=== PATIENT | female | born 1950 | race American Indian/Alaskan Native ===

== ENCOUNTER 2017-02-10 20:03 | Emergency (ER) | payer MEDICARE ==
[2017-02-10] MEDS ORDERED: MORPHINE IM ONE (21:07)
[2017-02-10] MEDS ORDERED: ZOFRAN ORAL LIQ PO ONE (21:07)
--- NOTE | 2017-02-10 21:12 | Emergency Department Report ---
ED General Adult HPI - General Chief complaint: Extremity Problem,Nontraumatic Stated complaint: KNEE/HIP PAIN Time Seen by Provider: 02/10/17 21:07 Source: patient, family Mode of arrival: Ambulatory Limitations: Physical Limitation - History of Present Illness Initial comments: Patient is a 66 yo F with hx of chornic right knee pain s/p knee replacement presenting today because of right knee pain. Patient states that this has been going on for months to years. She is supposed to see a pain management doctor but states something about her lip records being lost and not being able to get a refill of her morphine prescription. States any other medication over-the- counter does not work for her pain. Also states in our medical records that she is allergic to Tylenol and ibuprofen and hydrocodone and oxycodone. She denies any fevers or chills. She does have some nausea and vomiting which she states is secondary to the pain of her right knee. - Related Data Previous Rx's Medication Instructions Recorded Last Taken Type Butalb/Acetamin/Caff 50-325-40 2 tab PO Q8HR PRN #20 tablet 07/18/16 Unknown Rx [Fioricet] Promethazine [Phenergan TAB] 25 mg PO Q6HR PRN #20 tab 07/18/16 Unknown Rx Promethazine [Phenergan] 25 mg OK Q6HR PRN #10 supp.rect 07/18/16 Unknown Rx Allergies Allergy/AdvReac Type Severity Reaction Status Date / Time acetaminophen [From Percocet] Allergy Rash Verified 02/13/15 20:17 hydrocodone Allergy Vomiting Verified 08/29/13 16:42 ibuprofen [From Motrin] Allergy Vomiting Verified 02/13/15 20:17 oxycodone HCl [From Percocet] Allergy Rash Verified 02/13/15 20:17 ED Review of Systems ROS: Stated complaint: KNEE/HIP PAIN Other details as noted in HPI Comment: All other systems reviewed and negative Constitutional: denies: chills, fever Respiratory: denies: cough Cardiovascular: denies: chest pain Gastrointestinal: nausea, vomiting. denies: abdominal pain Skin: denies: rash Psychiatric: denies: anxiety ED Past Medical Hx - Past Medical History Previous Medical History?: Yes Hx Hypertension: Yes Hx Heart Attack/AMI: No Hx Congestive Heart Failure: No Hx Diabetes: No Hx Deep Vein Thrombosis: No Hx Headaches / Migraines: Yes (MIGRAINE) Hx Seizures: No Hx Asthma: No Hx COPD: No Hx Dementia: No Additional medical history: Migraines - Surgical History Past Surgical History?: Yes Hx Coronary Stent: No Additional Surgical History: knee replacement Right knee (titanium cherry), carpal tunnel bilateral wrists,hysterectomy - Social History Smoking Status: Former Smoker Substance Use Type: None - Medications Home Medications: Home Medications Medication Instructions Recorded Confirmed Last Taken Type Butalb/Acetamin/Caff 50-325-40 2 tab PO Q8HR PRN #20 tablet 07/18/16 Unknown Rx [Fioricet] Promethazine [Phenergan TAB] 25 mg PO Q6HR PRN #20 tab 07/18/16 Unknown Rx Promethazine [Phenergan] 25 mg OK Q6HR PRN #10 supp.rect 07/18/16 Unknown Rx ED Physical Exam - General Limitations: Physical Limitation General appearance: alert, in no apparent distress - Head Head exam: Present: atraumatic - Neck Neck exam: Present: normal inspection - Respiratory Respiratory exam: Present: normal lung sounds bilaterally. Absent: respiratory distress - Cardiovascular Cardiovascular Exam: Present: regular rate, normal rhythm - GI/Abdominal GI/Abdominal exam: Present: soft. Absent: distended, tenderness - Extremities Exam Extremities exam: Present: other (right knee with midline surgical scar, mild diffuse tenderness to the knee, no ecchymosis, no warmth, no tenderness, no swelling, no erythema, sensation intact distally, DP and PT pulses 1+, capillary refill less than 2 seconds) - Neurological Exam Neurological exam: Present: alert, oriented X3. Absent: motor sensory deficit ED Course Vital Signs 02/10/17 20:29 Temperature 98.4 F Pulse Rate 82 Respiratory 18 Rate Blood Pressure 185/89 O2 Sat by Pulse 99 Oximetry ED Medical Decision Making - Medical Decision Making patient has pchronic pain to the knee requesting for im medications, refusing po medications due to nausea ordered zofran odt and im morphine Blood pressure is elevated here but states that it only goes up with pain, she sees a primary care doctor and is not on any blood pressure medication will discharge with pain management follow up Critical care attestation.: If time is entered above; I have spent that time in minutes in the direct care of this critically ill patient, excluding procedure time. ED Disposition Clinical Impression: Chronic pain of right knee Disposition: DISCHARGED TO HOME OR SELFCARE Is pt being admited?: No Does the pt Need Aspirin: No Condition: Stable Additional Instructions: Please follow up with the primary care physician and pain management physician in the next 3-5 days. Return to the ER if your symptoms significantly worsen or you develop new symptoms.
[2017-02-10] MEDS ORDERED: ZOFRAN ONE (21:46)
[2017-02-10 22:07] VITALS: BP 154/78
[2017-02-10] MEDS ORDERED: ZOFRAN IM ONE (22:13)
== END 2017-02-10 22:15 | disposition home or self-care (01) ==
LOC: ED 20:03
DX: M25.561 Pain in right knee (principal); G89.29 Other chronic pain; I10 Essential (primary) hypertension; G43.909 Migraine, unspecified, not intractable, without status migrainosus; Z96.651 Presence of right artificial knee joint; Z87.891 Personal history of nicotine dependence; Z88.8 Allergy status to other drugs, medicaments and biological substances
CPT/HCPCS: 96372; 99282; J2270; J2405; Q0162